=== PATIENT | female | born 1965 | race Caucasian/White ===

== ENCOUNTER → 2017-07-24 08:45 | Outpatient (CLI) | payer OTHER, SELFPAY ==
--- NOTE | 2017-07-24 08:51 | ECHOD_ITS ---
Reason For Study: DYSPNEA Procedure This was a 2D Doppler, Color Flow transthoracic echocardiogram. Exam performed in department. Left Ventricle Normal size and thickness. The estimated ejection fraction is 65 %. Stage 1 diastolic dysfunction. No regional wall motion abnormalities noted. Right Ventricle Normal size and thickness. Normal systolic function. Atria Normal left atrium. Normal right atrium. Normal atrial septum. Bubble contrast study negative for right to left interatrial shunt. Mitral Valve The mitral valve is structurally normal. No prolapse or stenosis seen. Trivial mitral valve insufficiency. Tricuspid Valve Normal tricuspid valve. Trivial tricuspid valve insufficiency. Right ventricular systolic pressure estimated to be 32 mmHg. Aortic Valve Normal aortic valve. Trisinus/trileaflet aortic valve. Pulmonic Valve Normal pulmonic valve. Great Vessels Normal aortic root. Normal arch. Normal inferior vena cava. Inferior vena cava collapse with sniff. Pericardium/Pleural No pericardial effusion. Medication 22 gauge I.V. with prn adaptor inserted into right arm. Performed a rapid injection of agitated mix of 9 cc saline and 1cc air to assess for atrial septal defect. MMode/2D Measurements & Calculations LVIDd: 4.9 cm IVSd: 0.89 cm Ao root diam: 2.7 cm LVIDs: 2.9 cm LVPWd: 0.96 cm RVDd: 3.2 cm FS: 40.2 % LAV(MOD-sp2): 35.6 ml LA A4 area: 18.9 cm2 RA A4 area: 12.1 cm2 Doppler Measurements & Calculations MV E max tal: 79.3 cm/sec Lat Peak E' Tal: 11.4 cm/sec Med Peak E' Tal: 7.4 cm/sec MV A max tal: 91.3 cm/sec E/E' lat: 6.9 E/E' med: 10.7 MV E/A: 0.87 Ao V2 max: 132.5 cm/sec LV V1 max: 112.5 cm/sec PA V2 max: 107.7 cm/sec Ao max P.0 mmHg LV V1 max P.1 mmHg PI end-d tal: 76.3 cm/sec TR max tal: 259.6 cm/sec TR max P.2 mmHg Interpretation Summary The estimated ejection fraction is 65 %. Stage 1 diastolic dysfunction. Trivial mitral valve insufficiency. Trivial tricuspid valve insufficiency. Right ventricular systolic pressure estimated to be 32 mmHg. Bubble contrast study negative for right to left interatrial shunt. There is no comparison study available. Ordering Physician: Jayme Bassett Referring Physician: [facility] Performed By: Katalina Jacobson, KERWIN, RVT
== END ==
PROVIDERS: Visit Provider Internal Medicine Pulmonary Disease
DX: I27.20 Pulmonary hypertension, unspecified (principal)
CPT/HCPCS: 93306; A4216

== ENCOUNTER 2017-09-16 18:32 | Observation (INO) | payer OTHER, SELFPAY ==
[2017-09-16] VITALS (10 sets, daily range): BP systolic 112–153; BP diastolic 60–96; PULSE 64–92; RESP 16–18; TEMP 36–36.7; O2SAT 93–100; BMI 37.3
--- NOTE | 2017-09-16 09:02 | RAD_ITS ---
STUDY: X-RAY - ABDOMEN/PELVIS REASON FOR EXAM: Female, 52 years old. Abdominal pain. TECHNIQUE: Two AP supine views of the abdomen and pelvis. COMPARISON: None. FINDINGS: Normal visualized lung bases. There is an unremarkable bowel gas pattern. There is an 8.3 mm calculus in the region of the right ureteral pelvic junction. Findings suggestive of a calcified fibroid in the right side of the pelvis. Normal visualized osseous structures. RAD/Abdomen Single View IMPRESSION: 8.3 mm calculus in the region of the right ureteropelvic junction. Electronically Signed: Tarun Mahmood MD at 13:29 EDT Tel [phone], Service support ,
[2017-09-16 13:01] LABS: Bedside Glucose 238 mg/dL (70-110)
--- NOTE | 2017-09-16 14:00 | PCM.DC.URO ---
Discharge Diet: Light diet - advance as tolerated Discharge Activity: May not drive while taking narcotic pain medications. Call your doctor if your incision/area has: Continuous Slow Oozing Allergies/Adverse Reactions: Allergies No Known Allergies Allergy (Verified 09/15/17 16:09) Medications to take at Discharge Budesonide Inhaler 180 mcg [Pulmicort Inhaler 180 mcg] 1 puff INHALATION DAILY 09/15/17 Buspirone HCl 10 mg PO DAILY 09/15/17 Fluoxetine [Prozac] 20 mg PO DAILY 09/15/17 Glipizide 5 mg PO DAILY 09/15/17 Hydrocodone/Acetaminophen [Hydrocodon-Acetaminophen 5-325] 1 each PO TID 09/15/17 Insulin Glargine,Hum.rec.anlog [Lantus] 20 unit SQ BREAKFAST 09/15/17 Levothyroxine Sodium [Synthroid] 200 mcg PO DAILY 09/15/17 Metformin HCl [Glucophage] 500 mg PO BIDCM 09/15/17 Ondansetron [Zofran Odt] 4 mg PO BID 09/15/17 Ciprofloxacin [Cipro] 500 mg PO BID #6 tab 09/16/17 Hydrocodone/Acetaminophen [[place] 5-325 Tablet] 1 ea PO Q4H PRN PRN #20 tab 09/16/17 The following prescriptions were given: Hydrocodone/Acetaminophen [[place] 5-325 Tablet] 1 ea PO Q4H PRN PRN #20 tab PRN Reason: Pain Ciprofloxacin [Cipro] 500 mg PO BID #6 tab [facility] [[facility] - Please Follow Up With: Garcia Whitmore MD When: next week with xray.
--- NOTE | 2017-09-16 14:58 | OP.PCM_ITS ---
Report of Operation Date of Procedure: 09/16/17 Pre-Operative Diagnosis: Right ureteral calculi proximal Post-Operative Diagnosis: Same Surgery/Procedure Performed:: cystoscopy right stent placement and right ESWL Description of Surgical Findings:: 52-year-old female taken back to the operating room at the smooth induction of general anesthesia she was placed supine on the table in the dorsal lithotomy position,The urethra and vaginal area were prepped and draped in usual sterile fashion, I went into the bladder with a 21 [place] rigid cystourethroscope, the entire length of the urethra is normal, bladder neck normal, trigone was normal , bladder was normal, I then cannulated the right ureteral orifice with a Glidewire advanced a wire up into the kidney, went past the stone we were able then to visualize the stone under fluoroscopy, I then advanced a stent up into the right kidney, once a stent was in good position the stent coiled in the kidney and bladder left the string of the stent for easy extraction, we then delivered 3000 shockwaves to the stone of the right UPJ the stone broke up really nicely, was not able to see any more physical fragments at the end of the treatment cycle. The patient's anesthetic is being reversed plan to see her back next week with an x-ray and remove the stent. Type of Anesthesia:: General Drains: stent on right. - Admit VTE Documentation VTE Present on Admission: No VTE Mechan Device Prophylaxis: SCD's VTE Pharm Prophylaxis ordered?: No Reason prophylaxis not ordered:: Treatment Not Indicated
[2017-09-16 16:20] LABS: Bedside Glucose 223 mg/dL (70-110)
[2017-09-16] MEDS: Metoclopramide 10 MG/2 ML Vial IV (16:49)
[2017-09-16] MEDS: Lactated Ringers 1,000 ML 75 ML IV (17:49)
--- NOTE | 2017-09-16 18:31 | SUR.PHASEII ---
PT CONTINUED TO HAVE SEVERE NAUSEA AND VOMITING DESPITE ALL THE IV MEDICATION WE GAVE HER. BLOOD SUGAR CHECKED AND 223. UNABLE TO KEEP SNACK DOWN. THIRD BAG OF IVF HUNG WIDE OPEN. PT HAS VOIDED TWICE NOW. CONCERNED THAT SHE IS LEAKING URINE AND STATES THAT IS NOT NORMAL. PT C/O DIZZINESS AND THAT SHE WANTED TO BE ADMITTED BECAUSE SHE DID NOT FEEL WELL ENOUGH TO GO HOME. MD WAS PAGED AND ORDERS WERE OBTAINED FOR ADMISSION TO OBSERVATION.
[2017-09-16] MEDS: 0.9% Normal Saline 1,000 ML 125 ML IV (20:05)
[2017-09-16] MEDS: 0.9% NaCl Peripheral Flush Adult/Peds IV (20:06)
[2017-09-16] MEDS: proCHLORPERazine 10 MG/2 ML Vial IV (20:06)
[2017-09-17 03:59] VITALS: BP 112/65; PULSE 91; RESP 16; TEMP 36.6; O2SAT 97
[2017-09-17] MEDS: 0.9% Normal Saline 1,000 ML 125 ML IV (04:06)
[2017-09-17 06:04] LABS: Hemoglobin 11.6 g/dl (12.0-15.0); Mean Corp Hgb Conc 31.4 g/gl (32-36); Mean Corpuscular Hgb 26.2 pg (27.0-32.0); Mean Corpuscular Volume 83.5 fL (81-99); Mean Platelet Vol. 9.8 fl (6.2-12.0); Platelet Count 264 K/mm3 (150-450); RBC Distribution Width CV 14.2 % (11.6-14.6); RBC Distribution Width SD 42.4 fl (35.1-43.9); Red Blood Count 4.43 M/mm3 (4.2-5.4); White Blood Count 10.8 K/mm3 (4.4-11.0)
[2017-09-17 06:06] LABS: Scan Indicated on CBC? Y/N NO
[2017-09-17 06:17] LABS: Anion Gap 7 (5-15); BUN 8 mg/dL (7-18); BUN/Creat Ratio 11.9 RATIO (10-20); Chloride 108 mmol/L (98-107); Creatinine, Serum 0.67 mg/dL (0.55-1.02); EST Glomerular Filtration Rate 97 mL/min (>60); Est Glom Filt Rate - Afr Amer 117 mL/min (>60); Estimated Creatinine Clearance 93.34 ml/min; Glucose 217 mg/dL (74-106); Potassium 4.2 mmol/L (3.5-5.1); Sodium Level 143 mmol/L (136-145)
--- NOTE | 2017-09-17 07:25 | PCM.PN.BLA ---
Progress Note Kept in the hospital overnight after ESWL was very nauseated and sick and dizzy mostly from the anesthesia. This morning she states she is feeling much better and is ready to go home so we should be discharged home today she was just kept for observation because of nausea and spinning had but this point she is doing much better I will see her next week.
[2017-09-17 08:21] VITALS: BP 134/81; PULSE 90; RESP 18; TEMP 36.4; O2SAT 94
== END 2017-09-17 08:42 | disposition home or self-care (01) ==
LOC: SDC 18:32 → MS3 18:52
PROVIDERS: Admitting Provider Urology; Visit Provider Urology
PROC: (CPT 50590; principal; 2017-09-16 13:10)
DX: N20.1 Calculus of ureter (principal); E11.9 Type 2 diabetes mellitus without complications; J45.20 Mild intermittent asthma, uncomplicated; F32.9 Major depressive disorder, single episode, unspecified; F41.9 Anxiety disorder, unspecified; Z79.899 Other long term (current) drug therapy; Z79.4 Long term (current) use of insulin; Z85.850 Personal history of malignant neoplasm of thyroid; Z79.51 Long term (current) use of inhaled steroids; G47.30 Sleep apnea, unspecified
CPT/HCPCS: 00873; 50590; 52332; 36415; 74018; 80048; 82962; 85027; 96361; 96374; 99218; J7030; J7120; A4216; C1769; C2617; G0378; G0379; J2405

== ENCOUNTER → 2017-09-22 09:34 | Outpatient (CLI) | payer OTHER, SELFPAY ==
--- NOTE | 2017-09-22 09:38 | RAD_ITS ---
STUDY: X-RAY - ABDOMEN/PELVIS REASON FOR EXAM: Female, 52 years old. Kidney stone. Posterior pain with stent removal yesterday. Persistent hematuria. TECHNIQUE: Two AP supine views of the abdomen and pelvis. COMPARISON: September 16, 2017. FINDINGS: Normal visualized lung bases. There is an unremarkable bowel gas pattern. There is no demonstrated free abdominal air. The visualized liver, spleen and kidneys are grossly normal in size and morphology. There is no visualized calcification to the right of L2 where kidney stone was noted in the prior study. There is a questionable small calcification at the lower pole which may represent debris within the overlying colon. Densities popcorn calcification in the right pelvis. There are diffuse degenerative changes of the visualized lumbar spine. Stable left hip replacement. RAD/Abdomen Single View IMPRESSION: 1. Nonvisualization of the right renal calculus noted on the prior study. There is a small linear density overlying the lower pole which may be debris within the overlying colon. 2. No acute intra-abdominal process or other change from the prior study. Electronically Signed: Zhen Escobar DO at 8:22 EDT Tel [phone], Service support ,
== END ==
PROVIDERS: Visit Provider Nurse Practitioner Adult Health
DX: N20.0 Calculus of kidney (principal)
CPT/HCPCS: 74018; 82360

== ENCOUNTER → 2017-09-22 17:25 | Outpatient (CLI) | payer OTHER, SELFPAY ==
[2017-10-05 20:08] LABS: Ca Oxalate, Monohydrate 94 % (.)
[2017-10-06 08:34] LABS: Comment Note: (.)
== END ==
PROVIDERS: Visit Provider Nurse Practitioner Adult Health
DX: N20.0 Calculus of kidney (principal)
CPT/HCPCS: 82360

== ENCOUNTER → 2017-11-03 13:58 | Outpatient (CLI) | payer OTHER, SELFPAY ==
--- NOTE | 2017-11-03 14:01 | RAD_ITS ---
STUDY: X-RAY - ABDOMEN/PELVIS REASON FOR EXAM: Female, 52 years old. Kidney stones TECHNIQUE: KUB COMPARISON: X-ray abdomen 09/22/2017 FINDINGS: Calcified fibroid of the uterus. No evidence of ureteral calculus. No visible calculus overlying the renal silhouettes. Unremarkable bowel pattern. Grossly normal size and position of the solid organs of the abdomen. Clear lung bases with normal cardiac silhouette. RAD/Abdomen Single View IMPRESSION: No visible renal or ureteral calculi. Electronically Signed: Donnie Guillory, at 18:02 EDT Tel , Service support ,
== END ==
PROVIDERS: Visit Provider Urology
DX: N20.0 Calculus of kidney (principal)
CPT/HCPCS: 74018

== ENCOUNTER → 2018-09-27 16:24 | Outpatient (CLI) | payer BC, SELFPAY | PROVIDERS: Referring Provider Urology; Visit Provider Urology | DX: R30.0 Dysuria (principal) | CPT/HCPCS: 87086; 87088 ==

== ENCOUNTER → 2018-12-17 12:55 | Outpatient (CLI) | payer BC, SELFPAY ==
--- NOTE | 2018-12-17 13:02 | CT_ITS ---
STUDY: CT PELVIS WITHOUT CONTRAST REASON FOR EXAM: Female, 53 years old. Left hip pain for several months, recent left hip replacement RADIATION DOSAGE (If Supplied By Facility): CTDIvol = ( 25.74 ) mGy, DLP = ( 866.34 ) mGycm TECHNIQUE: Transaxial imaging of the pelvis was performed with oral contrast, and without intravenous administration of contrast material. Multiplanar coronal and sagittal images were reformatted. Individualized dose optimization techniques were used for this CT. COMPARISON: None. FINDINGS: Bony structures show age consistent degenerative changes. No demonstrated fracture or suspicious osseous lesion. A replaced left hip joint demonstrates anatomic alignment. There is no lucency around the periphery of the components to suspect loosening or infection. No acute abnormality noted. Soft tissue windows show a normal-appearing bladder. The uterus contains calcified fibroids, the endometrium cannot be adequately evaluated. No suspicious cystic mass or free fluid. CT/Pelvis without IV Contrast IMPRESSION: No CT evidence of bony abnormality, the replaced left hip joint demonstrates anatomic alignment with no plain film evidence of hardware loosening or infection. Involuted fibroid noted in the uterus, endometrium cannot be accurately evaluated Electronically Signed: Jermaine Reaves MD at 17:05 EDT , Service support ,
== END ==
PROVIDERS: Referring Provider Orthopaedic Surgery; Visit Provider Orthopaedic Surgery
DX: M25.552 Pain in left hip (principal); Z96.642 Presence of left artificial hip joint; D25.9 Leiomyoma of uterus, unspecified
CPT/HCPCS: 72192

== ENCOUNTER → 2019-10-20 | Outpatient (CLI) | payer BC, SELFPAY ==
[2017-09-16 19:05] VITALS: BMI 37.3
== END | disposition home or self-care (01) ==
LOC: LABSPEC 15:50
PROVIDERS: Referring Provider Nurse Practitioner Adult Health; Visit Provider Nurse Practitioner Adult Health
DX: N39.0 Urinary tract infection, site not specified (principal)
CPT/HCPCS: 87077; 87086; 87088; 87186

== ENCOUNTER → 2019-10-25 16:30 | Outpatient (CLI) | payer BC, SELFPAY ==
--- NOTE | 2019-10-25 16:35 | RAD_ITS ---
STUDY: X-RAY - ABDOMEN/PELVIS REASON FOR EXAM: Female, 54 years old. Kidney stones. TECHNIQUE: Two AP supine views of the abdomen and pelvis. COMPARISON: Abdomen, 11/03/2017. FINDINGS: Normal visualized lung bases. There is an unremarkable bowel gas pattern. There is no demonstrated free abdominal air. The visualized liver, spleen and kidneys are grossly normal in size and morphology. There is no visualized renal or ureteral calculus. Stable calcified uterine fibroid. Is no osseous changes. Again seen is a left total hip arthroplasty. RAD/Abdomen Single View IMPRESSION: No visualized renal or ureteral calculi. Electronically Signed: Zhen Escobar DO at 17:06 EDT Tel [phone], Service support ,
== END ==
LOC: RAD.FUTURE 16:30
PROVIDERS: Referring Provider Nurse Practitioner Adult Health; Visit Provider Nurse Practitioner Adult Health
DX: R10.9 Unspecified abdominal pain (principal); Z87.442 Personal history of urinary calculi
CPT/HCPCS: 74018

== ENCOUNTER 2022-03-24 13:41 | Emergency (ER) | payer OTHER, SELFPAY ==
[2022-03-24 13:42] VITALS: BP 152/70; PULSE 80; RESP 14; TEMP 36; O2SAT 97; BMI 39.1
--- NOTE | 2022-03-24 16:01 | ED.VIS.BACK ---
HPI History of Present Illness Chief Complaint: Back Informant: patient Onset/Context/Timing Onset: Today and Yesterday Injury: bending Timing: Continuous Quality: Sharp Location: Lumbar Current Severity: Moderate Maximum Severity: Severe Worsened by: improves with Movement, Bending and Lifting Relieved by: Remaining Still Associated Symptoms Associated Symptoms: Radiation to Right Leg and Radiation to Left Leg; Negative for Numbness, Tingling, Fever, Abdominal Pain, Dysuria, Unable to Ambulate, Unable to Transfer, Urinary Retention, Urinary Incontinence, Constipation or Fecal Incontinence Narrative Narrative: 56-year-old female history of prior ruptured disc in the past. Had spinal injections years ago. No recent injections. Has been doing a lot of bending, twisting and lifting. Last night started having lower back pain radiating to both legs worse today. No fever. No fall or trauma. No bowel or bladder incontinence or retention. She is on no blood thinners. It does radiate to both legs. Its worse with movement. Prior similar symptoms: Yes Recent Illness/Hospitalization: No [facility] Medical History Anxiety Depression Diabetes type 2, controlled Hypercholesteremia Hypothyroidism Thyroid cancer Home Medications budesonide 180 mcg/actuation breath activated powder inhaler (Pulmicort Flexhaler) 1 puff inhalation DAILY 09/15/17 [History Last Taken Unknown] buspirone 10 mg tablet 10 mg PO DAILY 09/15/17 [History Last Taken Unknown] fluoxetine 20 mg capsule 20 mg PO DAILY 09/15/17 [History Last Taken Unknown] glipizide 5 mg tablet 5 mg PO DAILY 09/15/17 [History Last Taken Unknown] hydrocodone-acetaminophen 5-325mg 5mg-325mg 1 ea PO TID 09/15/17 [History Last Taken Unknown] insulin glargine 100 unit/mL subcutaneous solution (Lantus U-100 Insulin) 20 unit SQ BREAKFAST 09/15/17 [History Last Taken Unknown] levothyroxine 200 mcg tablet (Synthroid) 200 mcg PO DAILY 09/15/17 [History Last Taken 09/16/17 08:00] metformin 500 mg tablet 500 mg PO BIDCM 09/15/17 [History Last Taken Unknown] ondansetron 4 mg disintegrating tablet 4 mg PO BID 09/15/17 [History Last Taken Unknown] ciprofloxacin HCl 500 mg tablet 500 mg PO BID #6 tabs 09/16/17 [Rx Last Taken Unknown] hydrocodone-acetaminophen 5-325mg 5mg-325mg 1 ea PO Q4H PRN PRN Pain #20 tabs 09/16/17 [Rx Last Taken Unknown] hydrocodone-acetaminophen 5-325mg 5mg-325mg 1 tab PO Q4H PRN pain 4 days #20 tabs 03/24/22 [Rx Last Taken Unknown] metaxalone 800 mg tablet 800 mg PO TID #21 tabs 03/24/22 [Rx Last Taken Unknown] prednisone 20 mg tablet 40 mg PO DAILY 7 days #14 tabs 03/24/22 [Rx Last Taken Unknown] Allergy/AdvReac Type Severity Reaction Status Date / Time No Known Allergies Allergy Verified 03/24/22 13:42 Surgical History H/O thyroidectomy History of tonsillectomy History of total left hip replacement Hx of appendectomy Social History Smoking Status: Never smoker ROS ROS ED ROS Narrative Low back pain radiating to both legs. No recent illness. No fever. Review of Systems ROS Unobtainable: Denies due to encephalopathy Constitutional Constitutional ED: Denies chills or fever(s) Eyes Eyes: Denies blurry vision ENT ENT ED: Denies ear pain Cardiovascular Cardiovascular: Denies chest pain Respiratory/Chest Respiratory/Chest: Denies dyspnea Gastrointestinal Gastrointestinal: Denies abdominal pain or constipation Genitourinary Genitourinary ED: Denies dysuria or hematuria Musculoskeletal Musculoskeletal: Reports back pain; Denies arthralgias, myalgias or neck pain Integumentary Denies abscess Neurologic Neurologic: Denies headache(s) Psychiatric Psychiatric: Denies anxiety Endocrine Endocrinology: Denies cold intolerance Hematologic/Lymphatic Hematologic/Lymphatic: Denies easy bleeding Allergic/Immunologic Allergic/Immunologic ED: Denies mouth swelling or tongue swelling EXAM Physical Exam Narrative Exam Narrative: 56-year-old female vital signs stable afebrile. Does not look septic or toxic. Complaining of back pain. H EENT exam unremarkable. Neck nontender. Full range of motion. Lungs clear to auscultation bilaterally. Heart regular rate and rhythm no murmur. Abdomen soft nontender. Moving all 4 extremities. Neurovascular intact. Normal strength and range of motion of both upper extremities. Normal medial thigh sensation. No cauda equina. No saddle anesthesia. Normal dorsi and plantar flexion both lower extremities. No weakness. No numbness. Positive straight leg raise bilaterally. Consistent with possibly a ruptured disc. Back pain reproducible over the lower lumbar spine. No ecchymosis or bruising. No signs of trauma. Cervical and thoracic spines are nontender. Neurologically she is awake and alert. Again no cauda equina or saddle anesthesia. No weakness. Const Vital Signs: 03/24/22 13:42 Temperature 96.8 F L Temperature Source Temporal Pulse Rate 80 Respiratory Rate 14 Blood Pressure 152/70 H Blood Pressure Mean 97 Pulse Ox 97 Oxygen Delivery Method Room Air Positive well nourished, well developed and obese; Negative for cachectic, contractures or unkempt General Appearance ED: well developed and NAD; Negative for unkempt, cachectic, contractures or pallor Nutritional Appearance: obese; Negative for cachectic HEENT Reports moist mucous membranes; Denies dry mucous membranes Negative for trauma or tenderness Mouth ED: No dry mucous membranes Mouth: No dry mucous membranes Eyes PERRL and EOMs intact bilaterally General Eye ED: Negative for pale conjunctiva, scleral icterus or other Neck no lymphadenopathy, supple and no JVD General: Negative for tenderness Thyroid: Negative for other Resp normal respiratory effort and clear to auscultation bilaterally Effort and Inspection: Negative for pain with movement Auscultation: Negative for rales, rhonchi or wheezes Cardio regular rate, regular rhythm, S1 normal heart sound, S2 normal heart sound and no murmurs Palpation: Negative for palpable S3 Rate: Negative for bradycardia Rhythm: Negative for abnormal rhythm Bruits: Negative for other GI normal to inspection, nondistended, normoactive bowel sounds, soft to palpation, non-tender, non-distended and no masses Inspection: Negative for abdominal distention Auscultation: Negative for hyperactive bowel sounds Palpation: Negative for tender, guarding or hepatomegaly Bladder / Kidney Exam: No other Back/Spine Negative for normal to inspection or no thoracic nor lumbar tenderness Back/Spine Narrative: Tenderness lower lumbar spine in the midline. No ecchymosis or bruising. No redness or warmth. General Back: Negative for CVA tenderness Cervical Spine: Negative for cervical spine tenderness Thoracic Spine / Upper Back: Negative for paraspinal muscle tenderness Lumbar Spine / Lower Back: ROM limited, straight leg raise positive right and straight leg raise positive - left; Negative for straight leg raise negative bilaterally Extremity normal to inspection General Extremety ED: Negative for edema or tenderness General Extremity: Negative for edema Neuro oriented x3 and no sensory deficits noted Sensorium / Orientation: Negative for alert, confused, lethargic or stuporous Sensory Exam: No other Motor Exam: strength 5/5 throughout; Negative for strength abnormal Psych mental status grossly normal Appearance: Negative for unkempt Attitude: No agitated Mood & Affect: Negative for depressed Skin no rashes or lesions noted and no wounds General Skin Exam: Negative for jaundice or pallor Lesions: No lesion noted Rashes: No rashes noted Trauma: Negative for abrasion or puncture Wounds: Negative for wounds noted MDM MDM MDM Narrative Medical decision making narrative: 56-year-old low back pain positive straight leg raise bilaterally. History of prior ruptured disc. Clinically I do think this may be an inflamed lumbar disc. She has no cauda equina or saddle anesthesia. I am unable to get an MRI today. She has no paralysis or weakness. She will be treated with IM Dilaudid, Toradol and p.o. Skelaxin. She will be reassessed. Most likely discharge home with pain medication. Steroids. Close follow-up. She understands she may need an MRI if this is not improving. Repeat exam patient is improving with the pain medication. I do think this is a lumbar disc. [facility] She knows return if she has bowel or bladder incontinence, retention or weakness in her legs. Discharge Plan Triage Chief Complaint: Back ED Provider: Jai Mccarty Dx/Rx/DC Orders Clinical Impression: Low back pain, Lumbar disc disease, History of diabetes mellitus, Acute herniated disc Instructions: ED Herniated Intervertebral Disk Prescriptions: New hydrocodone-acetaminophen 5-325 mg tablet 1 tab PO Q4H PRN (Reason: pain) 4 Days Qty: 20 0RF metaxalone 800 mg tablet 800 mg PO TID Qty: 21 0RF prednisone 20 mg tablet 40 mg PO DAILY 7 Days Qty: 14 0RF No Action metformin 500 MG tablet 500 mg PO BIDCM insulin glargine [Lantus U-100 Insulin] 100 UNIT/ML solution 20 unit SQ BREAKFAST hydrocodone-acetaminophen 1 EACH tablet 1 ea PO TID buspirone 10 MG tablet 10 mg PO DAILY levothyroxine [Synthroid] 200 MCG tablet 200 mcg PO DAILY ondansetron 4 MG tablet 4 mg PO BID fluoxetine 20 MG capsule 20 mg PO DAILY budesonide [Pulmicort Flexhaler] 1 PUFF inhaler 1 puff inhalation DAILY glipizide 5 MG tablet 5 mg PO DAILY hydrocodone-acetaminophen 1 EACH tablet 1 ea PO Q4H PRN PRN (Reason: Pain) Qty: 20 0RF ciprofloxacin HCl 500 MG tablet 500 mg PO BID Qty: 6 0RF [facility] [[facility] - As soon as possible Activity Restrictions/Additional Instructions: Very concern for possible herniated or inflamed disc. [place] for pain. Prednisone daily to decrease inflammation. Skelaxin as a muscle relaxant in case there is also lumbar strain. [facility] and [facility]. This is not improving you will need an MRI of your lower back. If you develop severe weakness, bowel or bladder incontinence or unable to urinate or move your bowels you need to return to get emergent MRI. Disposition Disposition: Home, Self Care
[2022-03-24] MEDS: HYDROmorphone 1 MG/ML Syringe IM (16:09)
[2022-03-24] MEDS: Metaxalone 800 MG Tablet PO (16:09)
[2022-03-24] MEDS: Ketorolac 60 MG/2 ML Vial IM (16:10)
--- NOTE | 2022-03-24 16:34 | NURSING ---
CALLED PREET[facility] MARIE NOTIFICATION I.D. [phone]
[2022-03-24] MEDS: Ondansetron ODT 4 MG Tablet PO (16:41)
== END 2022-03-24 16:41 | disposition home or self-care (01) ==
PROVIDERS: Emergency Provider Emergency Medicine; Visit Provider Emergency Medicine
DX: M51.26 Other intervertebral disc displacement, lumbar region (principal); E66.9 Obesity, unspecified
CPT/HCPCS: 96372; 99283

== ENCOUNTER → 2022-05-22 | Outpatient (CLI) | payer BC, SELFPAY ==
--- NOTE | 2022-05-22 16:50 | RAD_ITS ---
STUDY: X-RAY - ABDOMEN/PELVIS REASON FOR EXAM: Female, 56 years old. HX URINARY CALCULI TECHNIQUE: Single AP view of the abdomen / pelvis. COMPARISON: October 25, 2019 FINDINGS: 3.3 cm calcified mass noted within the pelvis. Left total hip arthroplasty. Increased stool. There is an unremarkable bowel gas pattern. The visualized liver, spleen and kidneys are grossly normal in size and morphology. Normal soft tissue structures. Normal visualized osseous structures. RAD/Abdomen Single View IMPRESSION: Probable calcified uterine fibroid. Increased stool. Electronically Signed: Robert Minaya MD at 21:00 EST ,
== END | disposition home or self-care (01) ==
PROVIDERS: Referring Provider Registered Nurse; Visit Provider Registered Nurse
DX: Z87.442 Personal history of urinary calculi (principal)
CPT/HCPCS: 74018